=== PATIENT | female | born 1960 | race Caucasian/White ===

== ENCOUNTER 2024-11-22 13:00 | Outpatient (CLI) | payer BC ==
[2024-11-22 13:32] LABS: Estimated GFR - POC 83.0
== END 2024-11-22 13:01 | disposition home or self-care (01) ==
LOC: CSHMRI 13:00
PROVIDERS: ATTEND Otolaryngology
DX: H90.42 Sensorineural hearing loss, unilateral, left ear, with unrestricted hearing on the contralateral side (principal)
CPT/HCPCS: 36415; 70553; 82565